=== PATIENT | male | born 1990 | race Caucasian/White ===

== ENCOUNTER 2025-07-11 01:47 | Emergency (ER) | payer SELFPAY ==
[~2025-07-11] VITALS: Ht 172.7 cm; Wt 73.0 kg
[2025-07-11 01:49] VITALS: TEMP 97.9
[2025-07-11 02:29] VITALS: PULSE 121; RESP 20; O2SAT 99
[2025-07-11] MEDS: IPRATROPIUM BROMIDE (0.02%) 0.5MG/2.5ML NEB HHN SCH (02:29)
[2025-07-11] MEDS: ALBUTEROL (0.083%) 2.5MG/3ML NEB HHN SCH (02:29)
[2025-07-11] MEDS: METHYLPREDNISOLONE SOD SUCC 125MG/2ML (ACT-O-VIAL) IV ONE (02:34)
[2025-07-11] MEDS: MAGNESIUM 2 G PREMIX 50 ML IV ONE (02:43)
[2025-07-11 02:50] VITALS: PULSE 118; RESP 20; O2SAT 99
[2025-07-11 03:10] VITALS: PULSE 120; RESP 20; O2SAT 99
[2025-07-11] MEDS ORDERED: PRED10TA MT (04:40)
[2025-07-11 05:40] VITALS: BP 122/65; PULSE 100; RESP 12; O2SAT 95
[2025-07-11] MEDS ORDERED: ALBU05 NEB (05:49)
[2025-07-11] MEDS ORDERED: ALBU18HF2 IH (05:49)
== END 2025-07-11 05:49 | disposition home or self-care (01) ==
LOC: ER 01:47
DX: J45.901 Unspecified asthma with (acute) exacerbation (principal); T59.811A Toxic effect of smoke, accidental (unintentional), initial encounter; Y92.89 Other specified places as the place of occurrence of the external cause
CPT/HCPCS: 71045; 94640; 93005; 96365; 96375; 99285; J3475; J2919; Z7610 ×4; 94070; A4606